=== PATIENT | female | born 1950 | race Caucasian/White ===

== ENCOUNTER 2019-04-09 23:32 | Emergency (ER) | payer BC ==
[~2019-04-09] VITALS: Ht 165.1 cm; Wt 71.0 kg
--- NOTE | 2019-04-09 23:53 | NUR ---
PT IS HERE VISITING [place] AND WAS AT THE [employer] PLAYING CARDS WITH HER AND BECAME WEAK AND DIZZY. PT WAS HYPOTENSIVE FOR EMS. PT ALERT BUT FEELS DIZZY. VS NOW STABLE. PT SEEN BY DR ABDI. OUTBOUND SALES REPRESENTATIVE ON. NSR NOTED. CALL LIGHT IN PLACE. AT BEDSIDE. WILL CONTINUE TO MONITOR.
[2019-04-09 23:54] LABS: BASOPHILS # (AUTO) 0.05 x10^3/uL (0-0.1); BASOPHILS % (AUTO) 0 % (0-1); EOSINOPHILS # (AUTO) 0.15 x10^3/uL (0-0.4); EOSINOPHILS % (AUTO) 1 % (1-7); LYMPHOCYTES # (AUTO) 4.54 x10^3/uL (1-3.4); LYMPHOCYTES % (AUTO) 37 % (22-44); MD NO; MEAN CORPUSCULAR HEMOGLOBIN 32.6 pg (27.0-34.8); MEAN CORPUSCULAR HGB CONC 32.9 g/dL (32.4-35.8); MEAN CORPUSCULAR VOLUME 99.3 fL (80-100); MEAN PLATELET VOLUME 7.1 fL (7.4-10.4); MONOCYTES % (AUTO) 6 % (2-9); NEUTROPHILS % (AUTO) 55 % (42-75); PLATELET COUNT 345 x10^3/uL (130-400); RED BLOOD COUNT 3.81 x10^6/uL (3.82-5.3); RED CELL DISTRIBUTION WIDTH 14.1 % (9.6-15.2)
[2019-04-10] MEDS ORDERED: SODIUM CHLORIDE 0.9% 1,000ML IVBOLUS ONE
[2019-04-10] MEDS ORDERED: SODIUM CHLORIDE FLUSH 10ML SYR IVF ONE
[2019-04-10 00:08] LABS: ALANINE AMINOTRANSFERASE 19 U/L (12-78); ALBUMIN 3.7 g/dL (3.4-5.0); ANION GAP 7 mmol/L (5-15); CALCIUM 9.1 mg/dL (8.5-10.1); CHLORIDE 110 mmol/L (98-107); CREATININE 1.53 mg/dL (0.55-1.02)
[2019-04-10 00:13] LABS: ALKALINE PHOSPHATASE 81 U/L (45-117); BILIRUBIN,TOTAL 0.3 mg/dL (0.2-1.0); TOTAL PROTEIN 7.2 g/dL (6.4-8.2); TROPONIN I < 0.015 ng/mL (0.000-0.045)
[2019-04-10 00:22] VITALS: BP 114/62
--- NOTE | 2019-04-10 00:24 | NUR ---
PT IS BACK FROM CT AND RESTING IN ROOM. REGULAR RESP. NO ACUTE DISTRESS NOTED. WILL CONTINUE TO MONITOR.
--- NOTE | 2019-04-10 00:47 | NUR ---
DR ABDI IN ROOM UPDATING PATIENT
--- NOTE | 2019-04-10 00:57 | NUR ---
DR ABDI SPOKE WITH PATIENT ABOUT STAYING IN THE HOSPITAL OVER NIGHT. PT REFUSED ADMISSION. PT WANTS TO BE DISCHARGED
--- NOTE | 2019-04-10 01:33 | NUR ---
PT ABLE TO SAFELY AMBUALTE AROUND ROOM. VS STABLE. PT READY FOR DC
== END 2019-04-10 01:36 | disposition home or self-care (01) ==
LOC: ED 04-10 00:37
DX: R53.1 Weakness (principal); R55 Syncope and collapse; I95.0 Idiopathic hypotension; J15.9 Unspecified bacterial pneumonia; F17.210 Nicotine dependence, cigarettes, uncomplicated; I10 Essential (primary) hypertension; E11.9 Type 2 diabetes mellitus without complications; Z85.528 Personal history of other malignant neoplasm of kidney
CPT/HCPCS: 70450; 71045; 80053; 80307; 82962; 84436; 84443; 84484; 85025; 93005; 96360; 99284; 99406; J7030